=== PATIENT | male | born 1960 | race Caucasian/White ===

== ENCOUNTER 2018-01-19 21:15 | Emergency (ER) | payer OTHER ==
[~2018-01-19] VITALS: Ht 180.3 cm; Wt 106.6 kg
[~2018-01-19 21:15] MED LIST: ADULT LOW DOSE81 MG PO; ALLEGRA180 MG; ALLEGRA60 MG PO; DOLOPHINE HCL10 MG; FLEXERIL; KEFLEX500 M1 PO; LISINOPRIL10 MG PO; METHADONE HCL5 MG PO; NORCO 5-325 TA1 EACH; SIMVASTATIN PO; VICODIN; VICODIN 5-3001 EACH; VICODIN PO; ZOCOR 10 MG TAB10 MG
[2018-01-19] MEDS ORDERED: METFORMIN HCL500 MG PO (21:27)
[2018-01-19] MEDS ORDERED: OXYCONTIN15 MG PO (21:28)
[2018-01-19 22:06] LABS: INFLUENZA A ANTIGEN None Detected (None Detect); INFLUENZA B ANTIGEN None Detected (None Detect)
[2018-01-19] MEDS ORDERED: MEDROLDOSEPACK PO (22:16)
[2018-01-19 22:25] VITALS: BP 160/79
== END 2018-01-19 22:25 | disposition home or self-care (01) ==
LOC: M.ERS 21:15
PROVIDERS: Nurse Practitioner Family
DX: J02.9 Acute pharyngitis, unspecified (principal); K21.9 Gastro-esophageal reflux disease without esophagitis; I10 Essential (primary) hypertension; E78.00 Pure hypercholesterolemia, unspecified; Z90.49 Acquired absence of other specified parts of digestive tract; Z87.891 Personal history of nicotine dependence

== ENCOUNTER 2018-05-14 17:10 | Emergency (ER) | payer OTHER ==
[~2018-05-14] VITALS: Ht 180.3 cm; Wt 104.3 kg
[~2018-05-14 17:10] MED LIST changes: +ACETAMINOPHEN-1 EAC1 PO; +ASPIR 8181 M1 PO; +DOLOPHINE HCL5 MG PO; +FLEXERIL PO; +HYDROCODON-ACE1 EAC7 PO; +IBUPROFEN 800800 MG PO; +LIDODERM 5%1 PATC1 TRANSDERM; +LISINOPRIL20 MG PO; +MEDROLDOSEPACK PO; +METFORMIN HCL500 MG PO; +OXYCONTIN15 MG PO; +PRILOSEC 20 MG20 MG PO; +TRIPLE ANTIBIO1 EACH TP; +VICODIN ES 7.51 EACH
[2018-05-14] MEDS ORDERED: ANTI INFLAMMATORY PO (17:25)
[2018-05-14] MEDS ORDERED: SILENOR3 MG PO (17:26)
[2018-05-14] MEDS ORDERED: NORCO 5-325 TA1 EAC1 PO ×2 (18:34→20:44)
[2018-05-14 19:24] VITALS: BP 144/89
== END 2018-05-14 19:25 | disposition home or self-care (01) ==
LOC: M.ERS 17:10
DX: S82.832A Other fracture of upper and lower end of left fibula, initial encounter for closed fracture (principal); I10 Essential (primary) hypertension; E78.00 Pure hypercholesterolemia, unspecified; Z90.49 Acquired absence of other specified parts of digestive tract; Z87.891 Personal history of nicotine dependence; W00.0XXA Fall on same level due to ice and snow, initial encounter; Y93.89 Activity, other specified; Y92.89 Other specified places as the place of occurrence of the external cause; Y99.8 Other external cause status